=== PATIENT | male | born 1995 | race African-American/Black ===

== ENCOUNTER 2017-01-27 16:21 | Emergency (ER) | payer SELFPAY ==
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
== END 2017-01-27 18:00 | disposition home or self-care (01) ==
LOC: CFTX 16:21 → CED 16:21 → CFTX 17:08
DX: S29.012A Strain of muscle and tendon of back wall of thorax, initial encounter (principal); F17.200 Nicotine dependence, unspecified, uncomplicated; V49.50XA Passenger injured in collision with unspecified motor vehicles in traffic accident, initial encounter; Y92.410 Unspecified street and highway as the place of occurrence of the external cause
CPT/HCPCS: 72072; 99283